=== PATIENT | female | born 1965 ===

== ENCOUNTER 2022-05-10 08:33 | Inpatient (IN) | payer SELFPAY ==
[2022-05-10] MEDS ORDERED: ACETAMINOPHEN 325 MG TAB PO PRN (09:05)
[2022-05-10] MEDS ORDERED: DEXTROSE 50% IN WATER (25GM) 50 ML SYRINGE IV PRN (09:05)
[2022-05-10] MEDS ORDERED: oxyCODONE /ACETAMINOPHEN 5-325MG TAB PO PRN (09:05)
[2022-05-10] MEDS ORDERED: hydrALAZINE 20 MG/1 ML INJ IV PRN (09:28)
[2022-05-10] MEDS ORDERED: PROMETHAZINE 12.5 MG/10 ML ORAL LIQD PO PRN (09:28)
[2022-05-10] MEDS ORDERED: POLYETHYLENE GLYCOL 3350 17 GM POWDER PO PRN (09:28)
[2022-05-10] MEDS: METOPROLOL TARTRATE 50 MG TAB PO SCH ×2 (17:24→23:35)
[2022-05-10] MEDS: FUROSEMIDE 20 MG TAB PO SCH (17:25)
[2022-05-10] MEDS: LISINOPRIL 10 MG TAB PO SCH (17:26)
[2022-05-10] MEDS: INSULIN LISPRO 100 UNIT/ML SUB-Q SCH ×3 (17:27→23:38)
[2022-05-10] MEDS: METOCLOPRAMIDE 10 MG TAB PO SCH ×2 (17:28→23:35)
[2022-05-10] MEDS: GABAPENTIN 300 MG CAP PO SCH ×2 (17:29→23:35)
[2022-05-10] MEDS: oxyCODONE 5 MG TAB PO PRN ×2 (18:42→23:35)
[2022-05-10] MEDS: APIXABAN 5 MG TAB PO SCH (23:35)
[2022-05-11] MEDS: INSULIN GLARGINE 100 UNITS/ML SUB-Q SCH ×3 (00:33→21:16)
[2022-05-11] MEDS: GABAPENTIN 300 MG CAP PO SCH ×3 (06:25→21:16)
[2022-05-11] MEDS: oxyCODONE 5 MG TAB PO PRN ×3 (09:02→22:07)
[2022-05-11] MEDS: METOCLOPRAMIDE 10 MG TAB PO SCH ×4 (09:04→21:17)
[2022-05-11] MEDS: APIXABAN 5 MG TAB PO SCH ×2 (09:05→21:17)
[2022-05-11] MEDS: LISINOPRIL 10 MG TAB PO SCH (09:05)
[2022-05-11] MEDS: FUROSEMIDE 20 MG TAB PO SCH (09:10)
[2022-05-11] MEDS: CITALOPRAM 20 MG TAB PO SCH (09:10)
[2022-05-11] MEDS: ASPIRIN EC 81 MG TAB PO SCH (09:10)
[2022-05-11] MEDS: METOPROLOL TARTRATE 50 MG TAB PO SCH ×2 (09:10→21:24)
[2022-05-11] MEDS: INSULIN LISPRO 100 UNIT/ML SUB-Q SCH ×4 (09:10→21:28)
[2022-05-11 10:38] LABS: Basophils # (Auto) 0.1 K/mm3 (0.0-0.1); Basophils % (Auto) 0.7 % (0.0-1.8); Eosinophils # (Auto) 0.1 K/mm3 (0.0-0.4); Eosinophils % (Auto) 1.2 % (0.0-4.3); Hematocrit 35.2 % (30.3-42.9); Hemoglobin 11.6 gm/dl (10.1-14.3); Lymphocytes # (Auto) 2.3 K/mm3 (1.2-5.4); Lymphocytes % (Auto) 20.8 % (13.4-35.0); Mean Corpuscular HGB Conc 33 % (30-34); Mean Corpuscular Volume 88 fl (79-97); Monocytes # (Auto) 0.7 K/mm3 (0.0-0.8); Monocytes % (Auto) 6.8 % (0.0-7.3); Platelet Count 383 K/mm3 (140-440); Red Blood Count 3.98 M/mm3 (3.65-5.03); Red Cell Distribution Width 14.8 % (13.2-15.2)
[2022-05-11 11:25] LABS: Alanine Aminotransferase 24 units/L (7-56); Albumin 3.8 g/dL (3.9-5); BUN/Creatinine Ratio 38; Blood Urea Nitrogen 30 mg/dL (7-17); Calcium 9.3 mg/dL (8.4-10.2); Hemolysis Index 8
--- NOTE | 2022-05-11 11:42 | History and Physical Report ---
History of Present Illness Date: 05/11/22 Date of admission: 05/10/22 17:06 Chief Complaint: Left BKA History of present illness: 57-year-old female who presented to outside hospital with foul-smelling left foot wound which was draining. Admitted for sepsis and IV antibiotics previously in July 2019. Upon examination the patient met criteria this admission for sepsis and was also found to be in atrial fibrillation with RVR. Imaging showed gas in the soft tissue with ulceration to the level of the bone but did not show venkatesh osseous destruction. Started on IV antibiotics, was planned to go to the OR on 04/28 for BKA however patient opted for debridement instead, vascular and podiatry both recommend BKA. On 04/30 patient ended up going for BKA, antibiotics were later stopped. Rate control was achieved using oral Cardizem and Lopressor and patient was started on Eliquis. Of note patient currently has diarrhea which just started overnight. Seems to be improving per the patient, will monitor and if continues and seems to be consistent with C. difficile will check stool sample. After the patient was medically stabilized they were transferred for further rehabilitation. All available medical records have been reviewed. Plan of care was discussed with patient. Past History Past Medical History: atrial fib, diabetes, GERD, hypertension, hyperlipidemia Past Surgical History: appendectomy, cholecystectomy, hysterectomy, tonsillectomy, Other (Back surgery, BKA) Social history: , lives with family ([id number]), smoking (Recently stopped at admission). denies: alcohol abuse, prescription drug abuse Family history: hypertension Medications and Allergies Allergies Allergy/AdvReac Type Severity Reaction Status Date / Time No Known Allergies Allergy Unverified 05/10/22 12:17 Home Medications Medication Instructions Recorded Confirmed Last Taken Type Citalopram Hydrobromide 1 tab PO QID 05/11/22 05/11/22 Unknown History [Citalopram HBr] Gabapentin [Neurontin] 600 mg PO Q8H 05/11/22 05/11/22 Unknown History Oxycodone HCl/Acetaminophen 1 each PO Q6HR PRN 05/11/22 05/11/22 Unknown History [Percocet 10/325 mg] amLODIPine [Norvasc] 10 mg PO DAILY 05/11/22 05/11/22 Unknown History buPROPion [Wellbutrin] 150 mg PO DAILY 05/11/22 05/11/22 Unknown History lisinopriL [Lisinopril] 10 mg PO HS 05/11/22 05/11/22 Unknown History tiZANidine [Zanaflex 4mg TAB] 6 mg PO QID 05/11/22 05/11/22 Unknown History traMADoL [Ultram] 50 mg PO Q4HR PRN 05/11/22 05/11/22 Unknown History Active Meds: Active Medications Acetaminophen (Acetaminophen 325 Mg Tab) 650 mg PO Q6H PRN PRN Reason: Pain MILD(1-3)/Fever >100.5/GALLARDO Apixaban (Apixaban 5 Mg Tab) 5 mg PO Q12HR [facility]; Protocol Last Admin: 05/11/22 09:05 Dose: 5 mg Aspirin (Aspirin Ec 81 Mg Tab) 81 mg PO QDAY [facility] Last Admin: 05/11/22 09:10 Dose: 81 mg Atorvastatin Calcium (Atorvastatin 40 Mg Tab) 40 mg PO QHS [facility] Last Admin: 05/10/22 23:35 Dose: 40 mg Bisacodyl (Bisacodyl 10 Mg Rect Supp) 10 mg [place] QDAY PRN PRN Reason: Constipation Bisacodyl (Bisacodyl 5 Mg Tab) 5 mg PO QDAY [facility] Last Admin: 05/11/22 09:11 Dose: Not Given Citalopram Hydrobromide (Citalopram 20 Mg Tab) 40 mg PO QDAY [facility] Last Admin: 05/11/22 09:10 Dose: 40 mg Dextrose (Dextrose 50% In Water (25gm) 50 Ml Syringe) 50 ml IV Q30MIN PRN; P rotocol PRN Reason: Hypoglycemia Furosemide (Furosemide 20 Mg Tab) 20 mg PO QDAY [facility] Last Admin: 05/11/22 09:10 Dose: 20 mg Gabapentin (Gabapentin 300 Mg Cap) 300 mg PO Q8HR [facility] Last Admin: 05/11/22 06:25 Dose: 300 mg Hydralazine HCl (Hydralazine 20 Mg/1 Ml Inj) 10 mg IV Q4HR PRN PRN Reason: Hypertension Insulin Glargine (Insulin Glargine 100 Units/Ml) 40 units SUB-Q QAMDIAB [facility] Last Admin: 05/11/22 09:02 Dose: 40 units Insulin Glargine (Insulin Glargine 100 Units/Ml) 40 units SUB-Q QHS [facility] Last Admin: 05/11/22 00:33 Dose: 40 units Insulin Human Lispro (Insulin Lispro 100 Unit/Ml) 0 unit SUB-Q [facility]; Protocol Last Admin: 05/11/22 09:10 Dose: 3 unit Lisinopril (Lisinopril 10 Mg Tab) 10 mg PO QDAY [facility] Last Admin: 05/11/22 09:05 Dose: 10 mg Loperamide HCl (Loperamide 2 Mg Cap) 2 mg PO Q2H PRN PRN Reason: Diarrhea Metoclopramide HCl (Metoclopramide 10 Mg Tab) 5 mg PO [facility] Last Admin: 05/11/22 09:04 Dose: 5 mg Metoprolol Tartrate (Metoprolol Tartrate 50 Mg Tab) 50 mg PO BID [facility] Last Admin: 05/11/22 09:10 Dose: 50 mg Oxycodone HCl (Oxycodone 5 Mg Tab) 10 mg PO Q4H PRN PRN Reason: Pain, Moderate (4-6) Last Admin: 05/11/22 09:02 Dose: 10 mg Polyethylene Glycol (Polyethylene Glycol 3350 17 Gm Powder) 17 gm PO QDAY PRN PRN Reason: Constipation Promethazine HCl (Promethazine 12.5 Mg/10 Ml Oral Liqd) 12.5 mg PO Q6H PRN PRN Reason: Nausea And Vomiting Review of Systems All systems: negative (ROS negative for 10 systems except as noted below with pertinent positives and negatives.) Constitutional: no weight loss, no fever, no chills Ears, nose, mouth and throat: no decreased hearing, no headache Cardiovascular: edema, high blood pressure, no chest pain, no palpitations, no rapid/irregular heart beat Respiratory: no cough, no shortness of breath Gastrointestinal: diarrhea, no nausea, no vomiting Genitourinary Female: stress incontinence, no hematuria Musculoskeletal: gait dysfunction, prior amputations Integumentary: wounds, darkening of skin, other (Gluteal breakdown) Neurological: weakness, numbness, tingling Psychiatric: no anxiety, no hypersomnia, no disorientation Endocrine: high blood sugars Exam - Exam Narrative exam: MUSCULOSKELETAL SPECIALTY EXAM CONSTITUTIONAL: Well developed, well nourished, appropriately groomed, obese LYMPHATIC: No appreciable abnormalities palpable in neck RESPIRATORY: Clear to auscultation bilaterally, no increased work of breathing CARDIOVASCULAR: Regular Rate/ Rhythm, no tenderness in BUE or BLE. Pulses palpable in all extremities. All extremities warm. Right lower extremity swelling and edema GI: + bowel sounds, soft, NTTP, nondistended. INTEGUMENTARY: Bruising and stasis changes on RLE, wound on LLE, otherwise normal, no lesion, rash, masses or bruising noted in extremities. MUSCULOSKELETAL: Left BKA, clean dry and intact with john and sutures, slightly warm but no overt signs of breakdown or infection. Otherwise BUE and BLE normal without defect, crepitus, subluxation, effusion, arthritic changes or TTP. BUE 4+/5, good ROM, with normal tone. 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 Coordination intact in BUE. No tremor noted in 4 extremities. POSTURE and GAIT: Sitting posture good. Balance appears reasonable. Able to transfer with assistance PSYCH: Alert, oriented x3, affect appears normal. Insight appears intact. - Constitutional Vitals: Vital Signs - 12hr 05/11/22 05/11/22 05/11/22 01:18 06:14 09:05 Temperature 98.9 F 98.5 F Pulse Rate 58 L 54 L 66 Respiratory 20 20 Rate Blood Pressure 130/49 Blood Pressure 133/57 102/36 [Right] O2 Sat by Pulse 96 94 Oximetry - Labs CBC & Chem 7: 05/11/22 10:32 05/11/22 10:32 Labs: Laboratory Results - last 72 hr 05/10/22 05/11/22 05/11/22 22:41 08:28 10:32 WBC 11.0 RBC 3.98 Hgb 11.6 Hct 35.2 MCV 88 MCH 29 MCHC 33 RDW 14.8 Plt Count 383 Lymph % (Auto) 20.8 [place] % (Auto) 6.8 Eos % (Auto) 1.2 Baso % (Auto) 0.7 Lymph # (Auto) 2.3 [place] # (Auto) 0.7 Eos # (Auto) 0.1 Baso # (Auto) 0.1 Seg Neutrophils % 70.5 H Seg Neutrophils # 7.7 Sodium Potassium Chloride Carbon Dioxide Anion Gap BUN Creatinine Estimated GFR BUN/Creatinine Ratio Glucose POC Glucose 283 H 194 H Calcium Total Bilirubin AST ALT Alkaline Phosphatase Total Protein Albumin Albumin/Globulin Ratio 05/11/22 10:32 WBC RBC Hgb Hct MCV MCH MCHC RDW Plt Count Lymph % (Auto) [place] % (Auto) Eos % (Auto) Baso % (Auto) Lymph # (Auto) [place] # (Auto) Eos # (Auto) Baso # (Auto) Seg Neutrophils % Seg Neutrophils # Sodium 139 Potassium 4.8 Chloride 100.0 Carbon Dioxide 28 Anion Gap 16 BUN 30 H Creatinine 0.8 Estimated GFR > 60 BUN/Creatinine Ratio 38 Glucose 281 H POC Glucose Calcium 9.3 Total Bilirubin 0.50 AST 21 ALT 24 Alkaline Phosphatase 92 Total Protein 6.5 Albumin 3.8 L Albumin/Globulin Ratio 1.4 Assessment and Plan Assessment and plan: Patient was assessed and evaluated for Acute Inpatient Rehab Unit. Due to the patients above-mentioned medical complexity, along with decreased functional mobility and self care, this patient continues to require and be appropriate for a comprehensive, multidisciplinary [id number] rehabilitation program. These needs cannot be met in an outpatient or other less intensive setting. The patient would continue to benefit from skilled therapy intervention for at least 3 hours per day, five days a week, with techniques specific to the needs of the patient to improve function, activities of daily living, and reintegration into the community. The patient continues to require: -- OT to improve ROM, self-care, and learn use of adaptive equipment -- PT to improve strength and balance, functional transfers, and ambulation with energy conservation techniques to improve functional mobility -- 24 hour RN to ensure and prevent skin breakdown, promote progressive independence while ensuring safety, ensure education regarding medications, and incorporation of the rehabilitation at the bedside -- 24 hour Letterpress Setter to coordinate this interdisciplinary program, and to manage/prevent complications as a result of the patients medical comorbidities. -Plan of care by day 4 -Weekly team conferences With such a program, there is a reasonable certainty that the goals individualized for this patient can be achieved within the specified length of stay. Left BKA: Continue to monitor wound for any signs of infection or dehiscence. Maintain dressing changes. Patient will need to follow-up with surgeon after discharge. Hypertension: Continue medications and adjust as needed for normotension. Goal less than 140/90. Atrial fibrillation: Continue rate control and Eliquis. Monitor for any signs of worsening cardiac function. Patient is on telemetry Gastroparesis: Scheduled Reglan, monitor Diabetes, poorly controlled: Insulin has been ordered, continue carb controlled diet. Monitor and adjust as needed for euglycemia. Diarrhea: Imodium ordered after being alerted by nursing. Will monitor for any possibility of C. difficile and test as needed Gluteal skin breakdown: Monitor frequently after bowel movements and provide CHRISTAL care, this was present on admission and appears to be chronic in nature ADL dysfunction: OT will work on improving ability to perform ADLs (including assistive devices) to increase independence and decrease caregiver burden and improve functional transfers and mobility training. Difficulty walking: PT will work on gait training and proper use of assistive devices and advance as appropriate to use of stairs and outside ambulation on u alexi surfaces. Unsteadiness on feet: PT will work on improving static and dynamic sitting and standing balance as well as proper use of assistive devices to decrease risk of falls. Abnormality of gait: PT will work to improve safety and efficiency of gait through neuromotor training and gait training along with instruction on proper use of assistive devices. Muscle weakness: PT & OT will work on strengthening exercises to improve functional strength including mixture of closed and open kinetic chain exercises. Debility: PT & OT will work on improving overall functional status to improve p articipation with ADLs, mobility and social involvement. Fatigue: PT & OT will work on improving endurance through aerobic exercises and therapeutic activity while monitoring patients tolerance for activity and vital signs as needed. DVT ppx: On Eliquis Pain: Continue physical modalities in therapy and pain medications as needed to achieve functional pain control. Sleep: Monitor and address as needed. Bowel: Monitor and address as needed. Appetite: Monitor and address as needed. Discharge planning: Pending therapy progress and care plan meeting. Will continue discussion with therapy team, SW, patient and family. Restrictions/ Precautions: Falls WB status: FWB Functional Hx: ADLs: Independent Cognition: Independent Mobility: No AD Barriers to Discharge: Decreased mobility and ability to perform self care, balance deficits, weakness Estimated Length of Stay: 57 days Discharge Destination: Home with family POST ADMISSION PHYSICIAN EVALUATION I have examined the patient and find that functional status, medical condition and appropriateness for IRF admission are essentially unchanged from those described in the preadmission screening. Will monitor for worsening wound d ehiscence, phantom pain, infection, DVT/PE, bowel and bladder complications and complications due to atrial fibrillation, diabetes, hypertension and electrolyte abnormalities. Will attempt to avoid occurrence of these issues or treat them if they present themselves. Patient discussed during team conference on day of admission. She has been evaluated by physical therapy and Occupational Therapy and is actually doing fairly well. She is without payer source. Will need to follow-up with her s urgeon and PCP at discharge. We will continue working with occupational therapy and physical therapy to improve her ability to perform transfers, ADLs and self-care as independently as possible. Plan to work with her for 5-7 days depending upon her progress. We will discuss further over the next few days with therapists
[2022-05-11] MEDS: LOPERAMIDE 2 MG CAP PO PRN ×3 (12:19→22:07)
[2022-05-12] MEDS: GABAPENTIN 300 MG CAP PO SCH ×3 (05:36→22:38)
[2022-05-12] MEDS: oxyCODONE 5 MG TAB PO PRN ×3 (05:36→19:11)
[2022-05-12] MEDS: LOPERAMIDE 2 MG CAP PO PRN ×2 (05:36→12:16)
--- NOTE | 2022-05-12 07:50 | Progress Note ---
Subjective Date of service: 05/12/22 Principal diagnosis: Left BKA Interval history: 57-year-old female who presented to outside hospital with foul-smelling left foot wound which was draining. Admitted for sepsis and IV antibiotics previously in July 2019. Upon examination the patient met criteria this admission for sepsis and was also found to be in atrial fibrillation with RVR. Imaging showed gas in the soft tissue with ulceration to the level of the bone but did not show venkatesh osseous destruction. Started on IV antibiotics, was planned to go to the OR on 04/28 for BKA however patient opted for debridement instead, vascular and podiatry both recommend BKA. On 04/30 patient ended up going for BKA, antibiotics were later stopped. Rate control was achieved using oral Cardizem and Lopressor and patient was started on Eliquis. Of note patient currently has diarrhea which just started overnight. Seems to be improving per the patient, will monitor and if continues and seems to be consistent with C. difficile will check stool sample. After the patient was medically stabilized they were transferred for further rehabilitation. All available medical records have been reviewed. Plan of care was discussed with patient. Interval History: Patient is participating in therapy and making reasonable progress. Taking rest breaks as needed. +BM. Denies pain, palpitations, dyspnea, cough, N/V, or joint pain. Left BKA: Stable, continue plan of care and monitor for any worsening, skin breakdown, infection, dehiscence Hypertension: Blood pressure well controlled currently, continue current medications Atrial fibrillation: Reviewed on telemetry, heart rate controlled without evidence of A. fib currently Diabetes: Blood glucose continues to be in the 200s, continue sliding scale and scheduled insulin Diarrhea: Continues to have bowel movements, will check a KUB, stool for C. difficile, discontinue Dulcolax (was not given due to loose stools) ADL and mobility deficits: Continue therapy to improve patient's ability to mobilize and perform ADLs as independently as possible All records, vitals, labs and medications were reviewed. No other issues per patient, nursing or therapy. Objective - Exam Narrative Exam: MUSCULOSKELETAL SPECIALTY EXAM CONSTITUTIONAL: Well developed, well nourished, appropriately groomed, obese RESPIRATORY: Clear to auscultation bilaterally, no increased work of breathing CARDIOVASCULAR: Regular Rate/ Rhythm, no tenderness in BUE or BLE. All extremities warm. Right lower extremity swelling and edema GI: + bowel sounds, soft, NTTP, nondistended. INTEGUMENTARY: Bruising and stasis changes on RLE, wound on LLE, gluteal skin breakdown, chronic, otherwise normal, no lesion, rash, masses or bruising noted in extremities. MUSCULOSKELETAL: Left BKA, clean dry and intact with john and sutures, slightly warm but no overt signs of breakdown or infection. Otherwise BUE and BLE normal without defect, crepitus, subluxation, effusion, arthritic changes or TTP. BUE 4+/5, good ROM, with normal tone. 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 Coordination intact in BUE. No tremor noted in 4 extremities. POSTURE and GAIT: Sitting posture good. Balance appears reasonable. Able to transfer with assistance PSYCH: Alert, oriented x3, affect appears normal. Insight appears intact. - Constitutional Vitals: Vital Signs - 12hr 05/11/22 05/11/22 05/12/22 20:00 21:24 01:00 Pulse Rate 70 66 Respiratory 19 Rate Blood Pressure 120/37 O2 Sat by Pulse 93 Oximetry 05/12/22 04:00 Pulse Rate 59 L Respiratory Rate Blood Pressure O2 Sat by Pulse Oximetry - Allied health notes Allied health notes reviewed: nursing, PT, OT - Labs CBC & Chem 7: 05/11/22 10:32 05/11/22 10:32 Labs: Laboratory Results - last 72 hr 05/10/22 05/11/22 05/11/22 22:41 08:28 10:32 WBC 11.0 RBC 3.98 Hgb 11.6 Hct 35.2 MCV 88 MCH 29 MCHC 33 RDW 14.8 Plt Count 383 Lymph % (Auto) 20.8 [place] % (Auto) 6.8 Eos % (Auto) 1.2 Baso % (Auto) 0.7 Lymph # (Auto) 2.3 [place] # (Auto) 0.7 Eos # (Auto) 0.1 Baso # (Auto) 0.1 Seg Neutrophils % 70.5 H Seg Neutrophils # 7.7 Sodium Potassium Chloride Carbon Dioxide Anion Gap BUN Creatinine Estimated GFR BUN/Creatinine Ratio Glucose POC Glucose 283 H 194 H Calcium Total Bilirubin AST ALT Alkaline Phosphatase Total Protein Albumin Albumin/Globulin Ratio 05/11/22 05/11/22 05/11/22 10:32 11:55 16:03 WBC RBC Hgb Hct MCV MCH MCHC RDW Plt Count Lymph % (Auto) [place] % (Auto) Eos % (Auto) Baso % (Auto) Lymph # (Auto) [place] # (Auto) Eos # (Auto) Baso # (Auto) Seg Neutrophils % Seg Neutrophils # Sodium 139 Potassium 4.8 Chloride 100.0 Carbon Dioxide 28 Anion Gap 16 BUN 30 H Creatinine 0.8 Estimated GFR > 60 BUN/Creatinine Ratio 38 Glucose 281 H POC Glucose 249 H 239 H Calcium 9.3 Total Bilirubin 0.50 AST 21 ALT 24 Alkaline Phosphatase 92 Total Protein 6.5 Albumin 3.8 L Albumin/Globulin Ratio 1.4 05/11/22 21:18 WBC RBC Hgb Hct MCV MCH MCHC RDW Plt Count Lymph % (Auto) [place] % (Auto) Eos % (Auto) Baso % (Auto) Lymph # (Auto) [place] # (Auto) Eos # (Auto) Baso # (Auto) Seg Neutrophils % Seg Neutrophils # Sodium Potassium Chloride Carbon Dioxide Anion Gap BUN Creatinine Estimated GFR BUN/Creatinine Ratio Glucose POC Glucose 290 H Calcium Total Bilirubin AST ALT Alkaline Phosphatase Total Protein Albumin Albumin/Globulin Ratio Assessment and Plan Left BKA: Continue to monitor wound for any signs of infection or dehiscence. Maintain dressing changes. Patient will need to follow-up with surgeon after discharge. Hypertension: Continue medications and adjust as needed for normotension. Goal less than 140/90. Atrial fibrillation: Continue rate control and Eliquis. Monitor for any signs of worsening cardiac function. Patient is on telemetry Gastroparesis: Scheduled Reglan, monitor Diabetes, poorly controlled: Insulin has been ordered, continue carb controlled diet. Monitor and adjust as needed for euglycemia. Diarrhea: Imodium ordered after being alerted by nursing. Check stool for C. difficile, KUB Gluteal skin breakdown: Monitor frequently after bowel movements and provide CHRISTAL care, this was present on admission and appears to be chronic in nature ADL dysfunction: OT will work on improving ability to perform ADLs (including assistive devices) to increase independence and decrease caregiver burden and improve functional transfers and mobility training. Difficulty walking: PT will work on gait training and proper use of assistive devices and advance as appropriate to use of stairs and outside ambulation on uneven surfaces. Unsteadiness on feet: PT will work on improving static and dynamic sitting and standing balance as well as proper use of assistive devices to decrease risk of falls. Abnormality of gait: PT will work to improve safety and efficiency of gait through neuromotor training and gait training along with instruction on proper use of assistive devices. Muscle weakness: PT & OT will work on strengthening exercises to improve functional strength including mixture of closed and open kinetic chain exercises. Debility: PT & OT will work on improving overall functional status to improve participation with ADLs, mobility and social involvement. Fatigue: PT & OT will work on improving endurance through aerobic exercises and therapeutic activity while monitoring patients tolerance for activity and vital signs as needed. DVT ppx: On Eliquis Pain: Continue physical modalities in therapy and pain medications as needed to achieve functional pain control. Sleep: Monitor and address as needed. Bowel: Monitor and address as needed. Appetite: Monitor and address as needed. Discharge planning: Pending therapy progress and care plan meeting. Will continue discussion with therapy team, SW, patient and family. Restrictions/ Precautions: Falls WB status: FWB Functional Hx: ADLs: Independent Cognition: Independent Mobility: walker Barriers to Discharge: Decreased mobility and ability to perform self care, balance deficits, weakness Estimated Length of Stay: 57 days Discharge Destination: Home with family
--- NOTE | 2022-05-12 09:54 | XRay Report ---
ABDOMEN 1 VIEW 05/12/2022 8:29 AM INDICATION / CLINICAL INFORMATION: Abd pain, constipation/diarrhea. COMPARISON: None available. FINDINGS: TUBES / LINES: None. BOWEL GAS PATTERN: No acute abnormality FREE AIR / EXTRALUMINAL GAS: None. ADDITIONAL FINDINGS: No significant additional findings. IMPRESSION: 1. No acute abnormality Signer Name: Ron Velazquez MD Signed: 05/12/2022 9:49 AM Workstation Name: [id number]
[2022-05-12] MEDS: INSULIN LISPRO 100 UNIT/ML SUB-Q SCH ×4 (10:00→22:38)
[2022-05-12] MEDS: FUROSEMIDE 20 MG TAB PO SCH (10:30)
[2022-05-12] MEDS: METOCLOPRAMIDE 10 MG TAB PO SCH ×4 (11:00→22:38)
[2022-05-12] MEDS: METOPROLOL TARTRATE 50 MG TAB PO SCH ×2 (12:16→22:35)
[2022-05-12] MEDS: LISINOPRIL 10 MG TAB PO SCH (12:19)
[2022-05-12] MEDS: APIXABAN 5 MG TAB PO SCH ×2 (12:20→22:37)
[2022-05-12] MEDS: CITALOPRAM 20 MG TAB PO SCH (12:20)
[2022-05-12] MEDS: ASPIRIN EC 81 MG TAB PO SCH (12:20)
[2022-05-12] MEDS: INSULIN GLARGINE 100 UNITS/ML SUB-Q SCH ×2 (13:10→22:39)
[2022-05-13] MEDS: GABAPENTIN 300 MG CAP PO SCH ×3 (06:03→21:39)
[2022-05-13] MEDS: INSULIN LISPRO 100 UNIT/ML SUB-Q SCH ×4 (08:23→21:39)
[2022-05-13] MEDS: INSULIN GLARGINE 100 UNITS/ML SUB-Q SCH ×3 (08:23→21:48)
[2022-05-13] MEDS: METOCLOPRAMIDE 10 MG TAB PO SCH ×4 (08:24→21:39)
[2022-05-13] MEDS: CITALOPRAM 20 MG TAB PO SCH (09:57)
[2022-05-13] MEDS: FUROSEMIDE 20 MG TAB PO SCH (09:58)
[2022-05-13] MEDS: METOPROLOL TARTRATE 50 MG TAB PO SCH ×2 (09:58→21:39)
[2022-05-13] MEDS: ASPIRIN EC 81 MG TAB PO SCH (09:58)
[2022-05-13] MEDS: APIXABAN 5 MG TAB PO SCH ×2 (09:58→21:38)
[2022-05-13] MEDS ORDERED: SODIUM CHLORIDE 0.9% 1000 ML 1,000 ML IV SCH (10:00)
[2022-05-13] MEDS: LISINOPRIL 10 MG TAB PO SCH (10:01)
[2022-05-13] MEDS: oxyCODONE 5 MG TAB PO PRN ×2 (10:07→21:38)
--- NOTE | 2022-05-13 13:13 | Progress Note ---
Subjective Date of service: 05/13/22 Principal diagnosis: Left BKA Interval history: 57-year-old female who presented to outside hospital with foul-smelling left foot wound which was draining. Admitted for sepsis and IV antibiotics previously in July 2019. Upon examination the patient met criteria this admission for sepsis and was also found to be in atrial fibrillation with RVR. Imaging showed gas in the soft tissue with ulceration to the level of the bone but did not show venkatesh osseous destruction. Started on IV antibiotics, was planned to go to the OR on 04/28 for BKA however patient opted for debridement instead, vascular and podiatry both recommend BKA. On 04/30 patient ended up going for BKA, antibiotics were later stopped. Rate control was achieved using oral Cardizem and Lopressor and patient was started on Eliquis. Of note patient currently has diarrhea which just started overnight. Seems to be improving per the patient, will monitor and if continues and seems to be consistent with C. difficile will check stool sample. After the patient was medically stabilized they were transferred for further rehabilitation. All available medical records have been reviewed. Plan of care was discussed with patient. Interval History: Patient is participating in therapy and making reasonable progress. Taking rest breaks as needed. +BM. Denies pain, palpitations, dyspnea, cough, N/V, or joint pain. Left BKA: Stable, continue plan of care and monitor for any worsening, skin breakdown, infection, dehiscence Hypertension: Diastolic has been running slightly lower than what we would prefer. However patient is asymptomatic and diastolic is in line with values seen in outside hospital but it was more variable there. Question fit of blood pressure cuff vs volume depletion. We will give 1 L gentle fluids, d/c lisinopril, place hold orders for Lasix, continue to monitor and continue metoprolol Atrial fibrillation: Reviewed on telemetry, heart rate controlled without evidence of A. fib currently. Cont metoprolol Diabetes: Blood glucose elevated to 300s, continue sliding scale and increase scheduled insulin Diarrhea: Continues to have bowel movements, will check a KUB, stool for C. difficile, discontinue Dulcolax (was not given due to loose stools) ADL and mobility deficits: Continue therapy to improve patient's ability to mobilize and perform ADLs as independently as possible All records, vitals, labs and medications were reviewed. No other issues per patient, nursing or therapy. Objective - Exam Narrative Exam: MUSCULOSKELETAL SPECIALTY EXAM CONSTITUTIONAL: Well developed, well nourished, appropriately groomed, obese RESPIRATORY: Clear to auscultation bilaterally, no increased work of breathing CARDIOVASCULAR: Regular Rate/ Rhythm, no tenderness in BUE or BLE. All extremities warm. Right lower extremity swelling and edema GI: + bowel sounds, soft, NTTP, nondistended. INTEGUMENTARY: Bruising and stasis changes on RLE, wound on LLE, gluteal skin breakdown, chronic, otherwise normal, no lesion, rash, masses or bruising noted in extremities. MUSCULOSKELETAL: Left BKA, clean dry and intact with john and sutures, slightly warm but no overt signs of breakdown or infection. Otherwise BUE and BLE normal without defect, crepitus, subluxation, effusion, arthritic changes or TTP. BUE 4+/5, good ROM, with normal tone. 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 Coordination intact in BUE. No tremor noted in 4 extremities. POSTURE and GAIT: Sitting posture good. Balance appears reasonable. Able to transfer with CGA PSYCH: Alert, oriented x3, affect appears normal. Insight appears intact. - Constitutional Vitals: Vital Signs - 12hr 05/13/22 05/13/22 05/13/22 08:23 09:32 09:58 Temperature 98.2 F Pulse Rate 66 72 Respiratory Rate Blood Pressure 123/40 123/42 O2 Sat by Pulse 95 Oximetry 05/13/22 10:07 Temperature Pulse Rate Respiratory 20 Rate Blood Pressure O2 Sat by Pulse Oximetry - Allied health notes Allied health notes reviewed: nursing, PT, OT - Labs CBC & Chem 7: 05/11/22 10:32 05/11/22 10:32 Labs: Laboratory Results - last 72 hr 05/10/22 05/11/22 05/11/22 22:41 08:28 10:32 WBC 11.0 RBC 3.98 Hgb 11.6 Hct 35.2 MCV 88 MCH 29 MCHC 33 RDW 14.8 Plt Count 383 Lymph % (Auto) 20.8 Osborne % (Auto) 6.8 Eos % (Auto) 1.2 Baso % (Auto) 0.7 Lymph # (Auto) 2.3 Osborne # (Auto) 0.7 Eos # (Auto) 0.1 Baso # (Auto) 0.1 Seg Neutrophils % 70.5 H Seg Neutrophils # 7.7 Sodium Potassium Chloride Carbon Dioxide Anion Gap BUN Creatinine Estimated GFR BUN/Creatinine Ratio Glucose POC Glucose 283 H 194 H Calcium Total Bilirubin AST ALT Alkaline Phosphatase Total Protein Albumin Albumin/Globulin Ratio 05/11/22 05/11/22 05/11/22 10:32 11:55 16:03 WBC RBC Hgb Hct MCV MCH MCHC RDW Plt Count Lymph % (Auto) Osborne % (Auto) Eos % (Auto) Baso % (Auto) Lymph # (Auto) Osborne # (Auto) Eos # (Auto) Baso # (Auto) Seg Neutrophils % Seg Neutrophils # Sodium 139 Potassium 4.8 Chloride 100.0 Carbon Dioxide 28 Anion Gap 16 BUN 30 H Creatinine 0.8 Estimated GFR > 60 BUN/Creatinine Ratio 38 Glucose 281 H POC Glucose 249 H 239 H Calcium 9.3 Total Bilirubin 0.50 AST 21 ALT 24 Alkaline Phosphatase 92 Total Protein 6.5 Albumin 3.8 L Albumin/Globulin Ratio 1.4 05/11/22 05/12/22 05/12/22 21:18 08:17 11:56 WBC RBC Hgb Hct MCV MCH MCHC RDW Plt Count Lymph % (Auto) Osborne % (Auto) Eos % (Auto) Baso % (Auto) Lymph # (Auto) Osborne # (Auto) Eos # (Auto) Baso # (Auto) Seg Neutrophils % Seg Neutrophils # Sodium Potassium Chloride Carbon Dioxide Anion Gap BUN Creatinine Estimated GFR BUN/Creatinine Ratio Glucose POC Glucose 290 H 232 H 311 H Calcium Total Bilirubin AST ALT Alkaline Phosphatase Total Protein Albumin Albumin/Globulin Ratio 05/12/22 05/12/22 05/12/22 16:00 20:44 22:00 WBC RBC Hgb Hct MCV MCH MCHC RDW Plt Count Lymph % (Auto) Osborne % (Auto) Eos % (Auto) Baso % (Auto) Lymph # (Auto) Osborne # (Auto) Eos # (Auto) Baso # (Auto) Seg Neutrophils % Seg Neutrophils # Sodium Potassium Chloride Carbon Dioxide Anion Gap BUN Creatinine Estimated GFR BUN/Creatinine Ratio Glucose POC Glucose 290 H 342 H 303 H Calcium Total Bilirubin AST ALT Alkaline Phosphatase Total Protein Albumin Albumin/Globulin Ratio 05/13/22 08:20 WBC RBC Hgb Hct MCV MCH MCHC RDW Plt Count Lymph % (Auto) Osborne % (Auto) Eos % (Auto) Baso % (Auto) Lymph # (Auto) Osborne # (Auto) Eos # (Auto) Baso # (Auto) Seg Neutrophils % Seg Neutrophils # Sodium Potassium Chloride Carbon Dioxide Anion Gap BUN Creatinine Estimated GFR BUN/Creatinine Ratio Glucose POC Glucose 240 H Calcium Total Bilirubin AST ALT Alkaline Phosphatase Total Protein Albumin Albumin/Globulin Ratio - Imaging and cardiology Abdominal x-ray: report reviewed, image reviewed Assessment and Plan Left BKA: Continue to monitor wound for any signs of infection or dehiscence. Maintain dressing changes. Patient will need to follow-up with surgeon after discharge. Hypertension: Discontinue lisinopril 10 mg, hold orders placed for Lasix and monitor blood pressure, adjust as needed for normotension. Goal less than 140/90. Diastolic has been low however was similar at outside hospital but outside hospital had more variability. 1 L of gentle fluids and monitor Atrial fibrillation: Continue rate control and Eliquis. Monitor for any signs of worsening cardiac function. Patient is on telemetry Gastroparesis: Scheduled Reglan, monitor Diabetes, poorly controlled: Insulin has been ordered, continue carb controlled diet. Monitor and adjust as needed for euglycemia. Increased Lantus Diarrhea: Imodium ordered after being alerted by nursing. Check stool for C. difficile, pending. KUB was reviewed and did not show any significant abnormality Gluteal skin breakdown: Monitor frequently after bowel movements and provide CHRISTAL care, this was present on admission and appears to be chronic in nature ADL dysfunction: OT will work on improving ability to perform ADLs (including assistive devices) to increase independence and decrease caregiver burden and improve functional transfers and mobility training. Difficulty walking: PT will work on gait training and proper use of assistive devices and advance as appropriate to use of stairs and outside ambulation on uneven surfaces. Unsteadiness on feet: PT will work on improving static and dynamic sitting and standing balance as well as proper use of assistive devices to decrease risk of falls. Abnormality of gait: PT will work to improve safety and efficiency of gait through neuromotor training and gait training along with instruction on proper use of assistive devices. Muscle weakness: PT & OT will work on strengthening exercises to improve functional strength including mixture of closed and open kinetic chain exercises. Debility: PT & OT will work on improving overall functional status to improve participation with ADLs, mobility and social involvement. Fatigue: PT & OT will work on improving endurance through aerobic exercises and therapeutic activity while monitoring patients tolerance for activity and vital signs as needed. DVT ppx: On Eliquis Pain: Continue physical modalities in therapy and pain medications as needed to achieve functional pain control. Sleep: Monitor and address as needed. Bowel: Monitor and address as needed. Appetite: Monitor and address as needed. Discharge planning: Pending therapy progress and care plan meeting. Will continue discussion with therapy team, SW, patient and family. Restrictions/ Precautions: Falls WB status: FWB Functional Hx: ADLs: Independent Cognition: Independent Mobility: walker Barriers to Discharge: Decreased mobility and ability to perform self care, balance deficits, weakness Estimated Length of Stay: 57 days Discharge Destination: Home with family
--- NOTE | 2022-05-13 16:22 | IRU Plan of Care ---
Interdisciplinary Plan of Care - IPOC IRU INTERDISCIPLINARY PLAN: [facility] Inpatient Rehab Unit Plan of Care IRU Interdisciplinary Care Plan Start: 05/11/22 16:14 Freq: Status: Active Protocol: Document 05/13/22 16:01 TH (Rec: 05/13/22 16:09 TH [id number]) IRU Interdisciplinary Care Plan Therapy Services Therapy Services Will Include: Physical Therapy,Occupational Query Text:Patient will be seen for a Therapy minimum of 3 hours of daily therapy 5 out of 7 days a week. Therapy intensity may be adjusted within a 7 consecutive day period to effectively serve the individual needs of the patient. Treatment Frequency/Intensity/Duration Treatment Frequency 5x/week Treatment Intensity 3 hours/day Treatment Duration 7-10 days Problem Area: Eating/Swallowing Eating/Swallowing Outcomes Eating/Swallowing Interventions Problem Area: Bathing/Grooming Bathing/Grooming Outcomes Improve [place] w/ Grooming,Improve [place] w/ Bathing Bathing/Grooming Interventions ADL Training,Use of Assistive Devices,Therapeutic Exercise, Therapeutic Activity, Neuromuscular Re-Education, Balance Work,Activity Tolerance Work,Patient/ Caregiver Education Problem Area: Dressing Dressing Outcomes Improve [place] w/ UB Dressing,Improve [place] w/ LB Dressing Dressing Outcomes Improve [place] w/ UB Dressing,Improve [place] w/ LB Dressing Problem Area: Mobility Mobility Outcomes Improve [place] w/ Bed Mobility,Improve [place] w/ Ambulation,Improve [place] w/ Stairs/Curb, Improve [place] w/ Wheelchair Mobility Interventions Therapeutic Exercise, Neuromuscular Re-Ed.,Activity Tolerance Work,Use of Assistive Devices,Patient/ Caregiver Education,Bed Mobility Work,Gait Training,W/ C Mobility Work Problem Area: Transfers Transfers Outcomes Improve [place] w/ Bed Transfers,Improve [place] w/ Car Transfers Transfers Interventions Transfer Training,Therapeutic Exercise,Neuromuscular Re- Education,Use of Assistive Devices,Patient/Caregiver Education Problem Area: Bowel/Bladder Managment Bowel/Bladder Outcomes Continent of Bladder,Continent of Bowel,Remain free of UTI Bowel/Bladder Interventions Use of Assistive Devices, Patient/Caregiver Education Problem Area: Toileting Toileting Outcomes Improve [place] w/ Toileting Toileting Interventions ADL Training,Balance Work,Use of Assistive Devices,Patient/ Caregiver Education Problem Area: Nutrition Nutrition Outcomes Nutrition Interventions Problem Area: Comprehension Comprehension Outcomes Comprehension Interventions Problem Area: Expression Expression Outcomes Expression Interventions Problem Area: Problem Solving Problem Solving Outcomes Problem Solving Interventions Problem Area: Memory Memory Outcomes Memory Interventions Problem Area: Pain Management Pain Management Outcomes Demonstrate/Verbalize Pain Strategies Pain Management Interventions Medication Management,Stress Management,Use of Devices/ Modalities (TENS, hot pack, cold pack, etc.),Positioning/ Turning,Patient/Caregiver Education Problem Area: Knowledge Deficits Knowledge Deficits Outcomes Demonstrate Ability to Manage Blood Glucose,Verbalize Precautions Knowledge Deficits Interventions Disease/Injury/Sx. Intervention Education, Medication Use Education,Body Mechanics/Joint Protection Education,Disease Management Education,Health Maintainence Education,Safety Education, Energy Conservation Education Problem Area: Skin/Tissue Integrity Skin/Tissue Integrity Outcomes Demonstrate Understanding of Pressure Relief Skin/Tissue Integrity Interventions Skin/Wound Care,Pressure Relief Instruction,Dressing Change Education,Positioning/ Turning Problem Area: Social Interaction Social Interaction Outcomes Social Interaction Interventions Problem Area: Adjustment to Disability Adjustment to Disability Outcomes Exhibit/Verbalize Decreased Depression,Exhibit/Verbalize Decreased Anxiety,Demonstrated Improved Motivation/ Participation Adjustment to Disability Interventions 1:1 Counseling,Resource Education Problem Area: Discharge Concerns Discharge Concerns Outcomes Discharge w/ Necessary Equipment,Have Home Health/ Outpatient Services Discharge Concerns Interventions Discharge Planning,Equipment Assessment, Acquisition and Placement,Family/Caregiver Conference,Family/Caregiver Training Problem Area: Community Reintegration Community Reintegration Outcomes Community Reintegration Interventions Problem Area: Home Management Home Management Outcomes Home Management Interventions Problem Area: Safety Safety Outcomes Provide Safe Environment, Perform Selfcare Safely, Demonstrate Good Safety w/ Transfers/Mobility Safety Interventions Identify Fall Risk,[place] Pt. to Environment,Reduce Environmental Hazards Problem Area: Medication Education Medication Education Outcomes Patient/Caregiver will Verbalize Understanding of Medications Medication Education Interventions Explain Administration/Side Effects/Interactions Problem Area: Diabetes Education Diabetes Education Outcomes Demonstrate Knowledge of Resources Availlable in Diabetic Ed. Folder Diabetes Education Interventions Give Pt. Diabetes Education Folder,Discuss Pathophysiology of Diabetes Problem Area: Oxygenation Oxygenation Outcomes Oxygenation Interventions Problem Area: Cardiovascular Cardiovascular Outcomes Maintain or Improve Cardiovascular Status Cardiovascular Interventions Assess Vital Signs at least Every 4 hours,Cardiac Monitoring, EKG and ABG as Ordered. Physician Only Medical Prognosis and Rehabilitation Good prognosis, good rehab potential. Lack of insurance is a barrier Potential (Completed by Physician) Interdisciplinary Problem List Interdisciplinary Problem List Interdisciplinary Problem List Impaired Bathing/Grooming, Query Text:Answers will Trigger Problems Impaired Dressing,Impaired and Outcomes on Worklist. Mobility,Impaired Transfers, Impaired Bladder/Bowel Management,Impaired Toileting, Pain Management,Knowledge Deficits,Adjustment to Disability,Discharge Concerns, Impaired Safety,Medications Education,Diabetes Education, Impaired Cardiovascular System This plan of care has been developed based on the findings from the pre- admission assessment, post admission physician evaluation, information gathered from the assessments from all therapy disciplines and other pertinent clinicia ns. The plan of care has been reviewed and discussed in collaboration with the interdisciplinary team. The plan of care will be reviewed and updated at least weekly.
[2022-05-14] MEDS: GABAPENTIN 300 MG CAP PO SCH ×3 (06:32→21:27)
[2022-05-14 07:59] LABS: BUN/Creatinine Ratio 24; Blood Urea Nitrogen 19 mg/dL (7-17); Calcium 8.4 mg/dL (8.4-10.2); Hemolysis Index 0
[2022-05-14 08:22] LABS: Hemoglobin 11.4 gm/dl (10.1-14.3); Mean Corpuscular HGB Conc 34 % (30-34); Mean Corpuscular Volume 86 fl (79-97); Platelet Count 301 K/mm3 (140-440); Red Blood Count 3.82 M/mm3 (3.65-5.03); Red Cell Distribution Width 14.8 % (13.2-15.2)
[2022-05-14] MEDS: INSULIN LISPRO 100 UNIT/ML SUB-Q SCH ×4 (09:16→21:27)
[2022-05-14] MEDS: INSULIN GLARGINE 100 UNITS/ML SUB-Q SCH ×2 (09:16→21:25)
[2022-05-14] MEDS: METOCLOPRAMIDE 10 MG TAB PO SCH ×4 (09:17→21:25)
[2022-05-14] MEDS: ASPIRIN EC 81 MG TAB PO SCH (09:58)
[2022-05-14] MEDS: METOPROLOL TARTRATE 50 MG TAB PO SCH ×2 (09:58→21:25)
[2022-05-14] MEDS: FUROSEMIDE 20 MG TAB PO SCH (09:58)
[2022-05-14] MEDS: oxyCODONE 5 MG TAB PO PRN ×4 (09:59→21:24)
[2022-05-14] MEDS: CITALOPRAM 20 MG TAB PO SCH (09:59)
[2022-05-14] MEDS: APIXABAN 5 MG TAB PO SCH ×2 (10:00→21:25)
--- NOTE | 2022-05-14 10:50 | Progress Note ---
Subjective Date of service: 05/14/22 Principal diagnosis: Left BKA Interval history: 57-year-old female who presented to outside hospital with foul-smelling left foot wound which was draining. Admitted for sepsis and IV antibiotics previously in July 2019. Upon examination the patient met criteria this admission for sepsis and was also found to be in atrial fibrillation with RVR. Imaging showed gas in the soft tissue with ulceration to the level of the bone but did not show venkatesh osseous destruction. Started on IV antibiotics, was planned to go to the OR on 04/28 for BKA however patient opted for debridement instead, vascular and podiatry both recommend BKA. On 04/30 patient ended up going for BKA, antibiotics were later stopped. Rate control was achieved using oral Cardizem and Lopressor and patient was started on Eliquis. Of note patient currently has diarrhea which just started overnight. Seems to be improving per the patient, will monitor and if continues and seems to be consistent with C. difficile will check stool sample. After the patient was medically stabilized they were transferred for further rehabilitation. All available medical records have been reviewed. Plan of care was discussed with patient. Interval History: Patient is participating in therapy and making reasonable progress. Taking rest breaks as needed. +BM, diarrhea has slowed down. Denies pain, palpitations, dyspnea, cough, N/V, or joint pain. Left BKA: Stable, continue plan of care and monitor for any worsening, skin breakdown, infection, dehiscence Hypertension: Diastolic has been running slightly lower than what we would prefer. However patient is asymptomatic and diastolic is in line with values seen in outside hospital but it was more variable there. Blood pressure was low again this morning based on recorded values. On my check during her therapy session she was 148/62 and asymptomatic. Lasix was given this morning despite diastolic blood pressure meeting the threshold for holding, have discontinued Lasix and will continue to monitor for the need to restart Lasix or lisinopril. Tolerated gentle fluids, BUNs/creatinine improved but diastolic blood pressure remains on the low side Atrial fibrillation: Reviewed on telemetry, heart rate controlled without evid ence of A. fib currently. Cont metoprolol Diabetes: Blood glucose improved with increase of Lantus, continue sliding scale and Diarrhea: Continues to have bowel movements but diarrhea has stopped currently. Continue to monitor, patient does have Imodium available as needed ADL and mobility deficits: Continue therapy to improve patient's ability to mobilize and perform ADLs as independently as possible, continues to make improvements All records, vitals, labs and medications were reviewed. No other issues per patient, nursing or therapy. Objective - Exam Narrative Exam: MUSCULOSKELETAL SPECIALTY EXAM CONSTITUTIONAL: Well developed, well nourished, appropriately groomed, obese RESPIRATORY: Clear to auscultation bilaterally, no increased work of breathing, no crackles or signs of fluid overload CARDIOVASCULAR: Regular Rate/ Rhythm, no tenderness in BUE or BLE. All extremities warm. Right lower extremity swelling and edema GI: + bowel sounds, soft, NTTP, nondistended. INTEGUMENTARY: Bruising and stasis changes on RLE, wound on LLE, gluteal skin breakdown, chronic, otherwise normal, no lesion, rash, masses or bruising noted in extremities. MUSCULOSKELETAL: Left BKA, clean dry and intact with john and sutures, slightly warm but no overt signs of breakdown or infection. Otherwise BUE and BLE normal without defect, crepitus, subluxation, effusion, arthritic changes or TTP. BUE 4+/5, good ROM, with normal tone. 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 Coordination intact in BUE. No tremor noted in 4 extremities. POSTURE and GAIT: Sitting posture good. Balance appears reasonable. Able to transfer with CGA PSYCH: Alert, oriented x3, affect appears normal. Insight appears intact. - Constitutional Vitals: Vital Signs - 12hr 05/14/22 05/14/22 05/14/22 01:02 07:25 09:59 Temperature 98.7 F Pulse Rate 67 Respiratory 20 Rate Blood Pressure 117/37 O2 Sat by Pulse 97 92 Oximetry - Allied health notes Allied health notes reviewed: nursing, PT, OT - Labs CBC & Chem 7: 05/14/22 06:29 05/14/22 06:29 Labs: Laboratory Results - last 72 hr 05/11/22 05/11/22 05/11/22 10:32 11:55 16:03 WBC RBC Hgb Hct MCV MCH MCHC RDW Plt Count Sodium 139 Potassium 4.8 Chloride 100.0 Carbon Dioxide 28 Anion Gap 16 BUN 30 H Creatinine 0.8 Estimated GFR > 60 BUN/Creatinine Ratio 38 Glucose 281 H POC Glucose 249 H 239 H Calcium 9.3 Total Bilirubin 0.50 AST 21 ALT 24 Alkaline Phosphatase 92 Total Protein 6.5 Albumin 3.8 L Albumin/Globulin Ratio 1.4 05/11/22 05/12/22 05/12/22 21:18 08:17 11:56 WBC RBC Hgb Hct MCV MCH MCHC RDW Plt Count Sodium Potassium Chloride Carbon Dioxide Anion Gap BUN Creatinine Estimated GFR BUN/Creatinine Ratio Glucose POC Glucose 290 H 232 H 311 H Calcium Total Bilirubin AST ALT Alkaline Phosphatase Total Protein Albumin Albumin/Globulin Ratio 05/12/22 05/12/22 05/12/22 16:00 20:44 22:00 WBC RBC Hgb Hct MCV MCH MCHC RDW Plt Count Sodium Potassium Chloride Carbon Dioxide Anion Gap BUN Creatinine Estimated GFR BUN/Creatinine Ratio Glucose POC Glucose 290 H 342 H 303 H Calcium Total Bilirubin AST ALT Alkaline Phosphatase Total Protein Albumin Albumin/Globulin Ratio 05/13/22 05/13/22 05/13/22 08:20 11:12 15:28 WBC RBC Hgb Hct MCV MCH MCHC RDW Plt Count Sodium Potassium Chloride Carbon Dioxide Anion Gap BUN Creatinine Estimated GFR BUN/Creatinine Ratio Glucose POC Glucose 240 H 223 H 288 H Calcium Total Bilirubin AST ALT Alkaline Phosphatase Total Protein Albumin Albumin/Globulin Ratio 05/13/22 05/14/22 05/14/22 21:11 06:29 06:29 WBC 9.0 RBC 3.82 Hgb 11.4 Hct 33.0 MCV 86 MCH 30 MCHC 34 RDW 14.8 Plt Count 301 Sodium 141 Potassium 4.3 Chloride 102.1 Carbon Dioxide 27 Anion Gap 16 BUN 19 H Creatinine 0.8 Estimated GFR > 60 BUN/Creatinine Ratio 24 Glucose 151 H POC Glucose 303 H Calcium 8.4 Total Bilirubin AST ALT Alkaline Phosphatase Total Protein Albumin Albumin/Globulin Ratio 05/14/22 07:24 WBC RBC Hgb Hct MCV MCH MCHC RDW Plt Count Sodium Potassium Chloride Carbon Dioxide Anion Gap BUN Creatinine Estimated GFR BUN/Creatinine Ratio Glucose POC Glucose 167 H Calcium Total Bilirubin AST ALT Alkaline Phosphatase Total Protein Albumin Albumin/Globulin Ratio Assessment and Plan Left BKA: Continue to monitor wound for any signs of infection or dehiscence. Maintain dressing changes. Patient will need to follow-up with surgeon after discharge. Hypertension: Discontinue lisinopril 10 mg, hold orders placed for Lasix and monitor blood pressure, adjust as needed for normotension. Goal less than 140/90. Diastolic has been low however was similar at outside hospital but outside hospital had more variability. 1 L of gentle fluids and monitor. Lasix discontinued as it was given even though parameters for holding were met. Recheck of blood pressure today by me personally showed 148/62. Atrial fibrillation: Continue rate control and Eliquis. Monitor for any signs of worsening cardiac function. Patient is on telemetry Gastroparesis: Scheduled Reglan, monitor Diabetes, poorly controlled: Insulin has been ordered, continue carb controlled diet. Monitor and adjust as needed for euglycemia. Increased Lantus, with Diarrhea: Imodium as needed. Check stool for C. difficile, pending. KUB was reviewed and did not show any significant abnormality Gluteal skin breakdown: Monitor frequently after bowel movements and provide CHRISTAL care, this was present on admission and appears to be chronic in nature ADL dysfunction: OT will work on improving ability to perform ADLs (including as sistive devices) to increase independence and decrease caregiver burden and improve functional transfers and mobility training. Difficulty walking: PT will work on gait training and proper use of assistive devices and advance as appropriate to use of stairs and outside ambulation on uneven surfaces. Unsteadiness on feet: PT will work on improving static and dynamic sitting and standing balance as well as proper use of assistive devices to decrease risk of falls. Abnormality of gait: PT will work to improve safety and efficiency of gait through neuromotor training and gait training along with instruction on proper use of assistive devices. Muscle weakness: PT & OT will work on strengthening exercises to improve functional strength including mixture of closed and open kinetic chain exerc ises. Debility: PT & OT will work on improving overall functional status to improve participation with ADLs, mobility and social involvement. Fatigue: PT & OT will work on improving endurance through aerobic exercises and therapeutic activity while monitoring patients tolerance for activity and vital signs as needed. DVT ppx: On Eliquis Pain: Continue physical modalities in therapy and pain medications as needed to achieve functional pain control. Sleep: Monitor and address as needed. Bowel: Monitor and address as needed. Appetite: Monitor and address as needed. Discharge planning: Pending therapy progress and care plan meeting. Will continue discussion with therapy team, SW, patient and family. Restrictions/ Precautions: Falls WB status: FWB Functional Hx: ADLs: Independent Cognition: Independent Mobility: walker Barriers to Discharge: Decreased mobility and ability to perform self care, balance deficits, weakness Estimated Length of Stay: 57 days Discharge Destination: Home with family
[2022-05-15] MEDS: GABAPENTIN 300 MG CAP PO SCH ×3 (06:17→21:43)
[2022-05-15] MEDS: INSULIN GLARGINE 100 UNITS/ML SUB-Q SCH ×2 (08:42→21:47)
[2022-05-15] MEDS: INSULIN LISPRO 100 UNIT/ML SUB-Q SCH ×4 (08:44→21:49)
[2022-05-15] MEDS: METOCLOPRAMIDE 10 MG TAB PO SCH (08:45)
[2022-05-15] MEDS: CITALOPRAM 20 MG TAB PO SCH (10:22)
[2022-05-15] MEDS: APIXABAN 5 MG TAB PO SCH ×2 (10:22→21:43)
[2022-05-15] MEDS: METOPROLOL TARTRATE 50 MG TAB PO SCH ×2 (10:23→21:43)
[2022-05-15] MEDS: ASPIRIN EC 81 MG TAB PO SCH (10:24)
[2022-05-15] MEDS ORDERED: METOCLOPRAMIDE 10 MG TAB PO PRN (11:00)
[2022-05-15] MEDS: oxyCODONE 5 MG TAB PO PRN ×2 (14:55→21:44)
[2022-05-16] MEDS: GABAPENTIN 300 MG CAP PO SCH ×3 (05:26→21:27)
[2022-05-16] MEDS: ASPIRIN EC 81 MG TAB PO SCH (09:31)
[2022-05-16] MEDS: CITALOPRAM 20 MG TAB PO SCH (09:31)
[2022-05-16] MEDS: INSULIN LISPRO 100 UNIT/ML SUB-Q SCH ×4 (09:31→22:12)
[2022-05-16] MEDS: INSULIN GLARGINE 100 UNITS/ML SUB-Q SCH ×2 (09:31→21:26)
[2022-05-16] MEDS: METOPROLOL TARTRATE 50 MG TAB PO SCH ×2 (09:32→21:40)
[2022-05-16] MEDS: APIXABAN 5 MG TAB PO SCH ×2 (09:32→21:27)
[2022-05-16] MEDS: oxyCODONE 5 MG TAB PO PRN (21:27)
[2022-05-17] MEDS: oxyCODONE 5 MG TAB PO PRN ×4 (05:30→21:41)
[2022-05-17] MEDS: GABAPENTIN 300 MG CAP PO SCH ×3 (05:31→21:35)
[2022-05-17 08:41] LABS: Hematocrit 34.7 % (30.3-42.9); Hemoglobin 11.2 gm/dl (10.1-14.3); Mean Corpuscular HGB Conc 32 % (30-34); Mean Corpuscular Volume 88 fl (79-97); Platelet Count 259 K/mm3 (140-440); Red Blood Count 3.94 M/mm3 (3.65-5.03); Red Cell Distribution Width 14.8 % (13.2-15.2)
[2022-05-17 08:57] LABS: Blood Urea Nitrogen 20 mg/dL (7-17); Calcium 8.6 mg/dL (8.4-10.2); Hemolysis Index 7
[2022-05-17 09:13] LABS: BUN/Creatinine Ratio 33
[2022-05-17] MEDS: INSULIN GLARGINE 100 UNITS/ML SUB-Q SCH ×2 (10:13→21:35)
[2022-05-17] MEDS: CITALOPRAM 20 MG TAB PO SCH (10:15)
[2022-05-17] MEDS: APIXABAN 5 MG TAB PO SCH ×2 (10:16→21:35)
[2022-05-17] MEDS: METOPROLOL TARTRATE 50 MG TAB PO SCH ×2 (10:17→21:34)
[2022-05-17] MEDS: ASPIRIN EC 81 MG TAB PO SCH (10:18)
[2022-05-17] MEDS: INSULIN LISPRO 100 UNIT/ML SUB-Q SCH ×4 (14:12→21:48)
--- NOTE | 2022-05-17 16:39 | Progress Note ---
Subjective Date of service: 05/17/22 Principal diagnosis: Left BKA Interval history: 57-year-old female who presented to outside hospital with foul-smelling left foot wound which was draining. Admitted for sepsis and IV antibiotics previously in July 2019. Upon examination the patient met criteria this admission for sepsis and was also found to be in atrial fibrillation with RVR. Imaging showed gas in the soft tissue with ulceration to the level of the bone but did not show venkatesh osseous destruction. Started on IV antibiotics, was planned to go to the OR on 04/28 for BKA however patient opted for debridement instead, vascular and podiatry both recommend BKA. On 04/30 patient ended up going for BKA, antibiotics were later stopped. Rate control was achieved using oral Cardizem and Lopressor and patient was started on Eliquis. Of note patient currently has diarrhea which just started overnight. Seems to be improving per the patient, will monitor and if continues and seems to be consistent with C. difficile will check stool sample. After the patient was medically stabilized they were transferred for further rehabilitation. All available medical records have been reviewed. Plan of care was discussed with patient. Interval History: Patient is participating in therapy and making reasonable progress. Taking rest breaks as needed. -BM. Denies pain, palpitations, dyspnea, cough, N/V, or joint pain. Left BKA: Stable, continue plan of care and monitor for any worsening, skin breakdown, infection, dehiscence Hypertension: Diastolic has been running slightly lower than what we would prefer. However patient is asymptomatic and diastolic is in line with values seen in outside hospital but it was more variable there. Medications have been adjusted, blood pressure remains slightly low on the diastolic side however the patient does remain asymptomatic. Recheck after seeing her today showed wide variation between 96/30 - 112/50, body habitus may be playing a role Atrial fibrillation: Reviewed on telemetry, heart rate controlled without evidence of A. fib currently. Cont metoprolol Diabetes: Blood glucose improved with increase of Lantus but still variable, continue sliding scale and monitor Diarrhea: Seems improved after stopping scheduled Reglan. Discussed with patient. Having slower stools now and thinks that she may be constipated, reminded her that she does have bowel meds available as needed. Continue to monitor, patient does have Imodium available as needed ADL and mobility deficits: Continue therapy to improve patient's ability to mobi lize and perform ADLs as independently as possible, continues to make improvements, look to discharge on Tuesday. All records, vitals, labs and medications were reviewed. No other issues per patient, nursing or therapy. Objective - Exam Narrative Exam: MUSCULOSKELETAL SPECIALTY EXAM CONSTITUTIONAL: Well developed, well nourished, appropriately groomed, obese RESPIRATORY: Clear to auscultation bilaterally, no increased work of breathing, no crackles or signs of fluid overload CARDIOVASCULAR: Regular Rate/ Rhythm, no tenderness in BUE or BLE. All extremities warm. Right lower extremity swelling and edema GI: + bowel sounds, soft, NTTP, nondistended. INTEGUMENTARY: Bruising and stasis changes on RLE, wound on LLE, gluteal skin breakdown, chronic, otherwise normal, no lesion, rash, masses or bruising noted in e xtremities. MUSCULOSKELETAL: Left BKA, clean dry and intact with john and sutures, slightly warm but no overt signs of breakdown or infection. Otherwise BUE and BLE normal without defect, crepitus, subluxation, effusion, arthritic changes or TTP. BUE 4+/5, good ROM, with normal tone. BLE 4+/5 good ROM, with normal tone NEURO: Sensation intact in all extremities with neuropathy present below mid hernandes and in hands. Coordination intact in BUE. No tremor noted in 4 extremities. POSTURE and GAIT: Sitting posture good. Able to transfer with supervision PSYCH: Alert, oriented x3, affect appears normal. Insight appears intact. - Constitutional Vitals: Vital Signs - 12hr 05/17/22 05/17/22 05/17/22 06:00 08:05 10:15 Temperature 97.9 F Pulse Rate 59 L 60 Respiratory 19 16 Rate Blood Pressure 118/47 O2 Sat by Pulse 97 Oximetry 05/17/22 10:17 Temperature Pulse Rate 62 Respiratory Rate Blood Pressure O2 Sat by Pulse Oximetry - Allied health notes Allied health notes reviewed: nursing, PT, OT - Labs CBC & Chem 7: 05/17/22 07:56 05/17/22 07:00 Labs: Laboratory Results - last 72 hr 05/14/22 05/15/22 05/15/22 20:21 07:30 12:15 WBC RBC Hgb Hct MCV MCH MCHC RDW Plt Count Sodium Potassium Chloride Carbon Dioxide Anion Gap BUN Creatinine Estimated GFR BUN/Creatinine Ratio Glucose POC Glucose 318 H 213 H 263 H Calcium 05/15/22 05/15/22 05/16/22 16:52 20:18 07:29 WBC RBC Hgb Hct MCV MCH MCHC RDW Plt Count Sodium Potassium Chloride Carbon Dioxide Anion Gap BUN Creatinine Estimated GFR BUN/Creatinine Ratio Glucose POC Glucose 299 H 299 H 228 H Calcium 05/16/22 05/16/22 05/16/22 11:04 15:40 22:01 WBC RBC Hgb Hct MCV MCH MCHC RDW Plt Count Sodium Potassium Chloride Carbon Dioxide Anion Gap BUN Creatinine Estimated GFR BUN/Creatinine Ratio Glucose POC Glucose 255 H 270 H 232 H Calcium 05/17/22 05/17/22 05/17/22 07:00 07:56 08:02 WBC 7.1 RBC 3.94 Hgb 11.2 Hct 34.7 MCV 88 MCH 29 MCHC 32 RDW 14.8 Plt Count 259 Sodium 140 Potassium 4.8 Chloride 102.2 Carbon Dioxide 27 Anion Gap 16 BUN 20 H Creatinine 0.6 Estimated GFR > 60 BUN/Creatinine Ratio 33 Glucose 187 H POC Glucose 186 H Calcium 8.6 05/17/22 12:27 WBC RBC Hgb Hct MCV MCH MCHC RDW Plt Count Sodium Potassium Chloride Carbon Dioxide Anion Gap BUN Creatinine Estimated GFR BUN/Creatinine Ratio Glucose POC Glucose 220 H Calcium Assessment and Plan Left BKA: Continue to monitor wound for any signs of infection or dehiscence. Maintain dressing changes. Patient will need to follow-up with surgeon after discharge. Hypertension: Discontinue lisinopril 10 mg, hold orders placed for Lasix and monitor blood pressure, adjust as needed for normotension. Goal less than 140/90. Diastolic has been low however was similar at outside hospital but outside hospital had more variability. 1 L of gentle fluids and monitor. Lasix discontinued . Recheck of blood pressure is giving a different reading then that obtained by others, highly variable. Atrial fibrillation: Continue rate control and Eliquis. Monitor for any signs of worsening cardiac function. Patient is on telemetry Gastroparesis: Changed Reglan to as needed due to possible side effects with diarrhea, monitor Diabetes, poorly controlled: Insulin has been ordered, continue carb controlled diet. Monitor and adjust as needed for euglycemia. Increased Lantus, with impr ovement Diarrhea: Imodium as needed. Check stool for C. difficile, not done apparently, no results available. At any rate diarrhea seems to have subsided. KUB was reviewed and did not show any significant abnormality Gluteal skin breakdown: Monitor frequently after bowel movements and provide P TOVA care, this was present on admission and appears to be chronic in nature ADL dysfunction: OT will work on improving ability to perform ADLs (including assistive devices) to increase independence and decrease caregiver burden and improve functional transfers and mobility training. Difficulty walking: PT will work on gait training and proper use of assistive devices and advance as appropriate to use of stairs and outside ambulation on uneven surfaces. Unsteadiness on feet: PT will work on improving static and dynamic sitting and standing balance as well as proper use of assistive devices to decrease risk of falls. Abnormality of gait: PT will work to improve safety and efficiency of gait through neuromotor training and gait training along with instruction on proper use of assistive devices. Muscle weakness: PT & OT will work on strengthening exercises to improve functional strength including mixture of closed and open kinetic chain exercises. Debility: PT & OT will work on improving overall functional status to improve participation with ADLs, mobility and social involvement. Fatigue: PT & OT will work on improving endurance through aerobic exercises and therapeutic activity while monitoring patients tolerance for activity and vital signs as needed. DVT ppx: On Eliquis Pain: Continue physical modalities in therapy and pain medications as needed to achieve functional pain control. Sleep: Monitor and address as needed. Bowel: Monitor and address as needed. Appetite: Monitor and address as needed. Discharge planning: Pending therapy progress and care plan meeting. Will continue discussion with therapy team, SW, patient and family. Look to discharge on Tuesday with family. Patient is stating that she needs a ride home. Restrictions/ Precautions: Falls WB status: FWB Functional Hx: ADLs: Independent Cognition: Independent Mobility: walker Barriers to Discharge: Decreased mobility and ability to perform self care, balance deficits, weakness Estimated Length of Stay: 57 days Discharge Destination: Home with family
[2022-05-18] MEDS: GABAPENTIN 300 MG CAP PO SCH ×3 (05:11→21:46)
[2022-05-18] MEDS: oxyCODONE 5 MG TAB PO PRN ×4 (05:13→20:09)
[2022-05-18] MEDS: INSULIN LISPRO 100 UNIT/ML SUB-Q SCH ×4 (08:00→21:45)
[2022-05-18] MEDS ORDERED: METOPROLOL TARTRATE 50 MG TAB PO SCH (08:22)
[2022-05-18] MEDS: INSULIN GLARGINE 100 UNITS/ML SUB-Q SCH ×2 (08:25→21:45)
--- NOTE | 2022-05-18 14:05 | Progress Note ---
Subjective Date of service: 05/18/22 Principal diagnosis: Left BKA Interval history: 57-year-old female who presented to outside hospital with foul-smelling left foot wound which was draining. Admitted for sepsis and IV antibiotics previously in July 2019. Upon examination the patient met criteria this admission for sepsis and was also found to be in atrial fibrillation with RVR. Imaging showed gas in the soft tissue with ulceration to the level of the bone but did not show venkatesh osseous destruction. Started on IV antibiotics, was planned to go to the OR on 04/28 for BKA however patient opted for debridement instead, vascular and podiatry both recommend BKA. On 04/30 patient ended up going for BKA, antibiotics were later stopped. Rate control was achieved using oral Cardizem and Lopressor and patient was started on Eliquis. Of note patient currently has diarrhea which just started overnight. Seems to be improving per the patient, will monitor and if continues and seems to be consistent with C. difficile will check stool sample. After the patient was medically stabilized they were transferred for further rehabilitation. All available medical records have been reviewed. Plan of care was discussed with patient. Interval History: Patient is participating in therapy and making reasonable progress. Taking rest breaks as needed. +BM. Denies pain, palpitations, dyspnea, cough, N/V, or joint pain. Left BKA: Stable, continue plan of care and monitor for any worsening, skin breakdown, infection, dehiscence Hypertension: Diastolic has been running slightly lower than what we would prefer. However patient is asymptomatic and diastolic is in line with values seen in outside hospital but it was more variable there. Medications have been adjusted, blood pressure remains slightly low on the diastolic side however the patient does remain asymptomatic. Atrial fibrillation: Reviewed on telemetry, heart rate controlled without evidence of A. fib currently. Cont metoprolol Diabetes: Blood glucose improved with increase of Lantus but still variable, continue sliding scale and monitor Diarrhea: Seems improved after stopping scheduled Reglan. Discussed with patient. Having slower stools now and thinks that she may be constipated, reminded her that she does have bowel meds available as needed. Continue to monitor, patient does have Imodium available as needed ADL and mobility deficits: Continue therapy to improve patient's ability to mobilize and perform ADLs as independently as possible, continues to make improvements, look to discharge on Tuesday. All records, vitals, labs and medications were reviewed. No other issues per patient, nursing or therapy. Patient discussed during team conference, making fairly good progress and should be set to discharge tomorrow. Patient's family is already obtained several of the items of DME that we have recommended. I did also write a list earlier in her stay for the DME but it looks like they are purchasing it on their own. Patient states that they have hired a caregiver to come in and assist with her care in addition to the home health that will be provided for short period time since she is uninsured. We will look to discharge patient tomorrow Objective - Exam Narrative Exam: MUSCULOSKELETAL SPECIALTY EXAM CONSTITUTIONAL: Well developed, well nourished, appropriately groomed, obese RESPIRATORY: Clear to auscultation bilaterally, no increased work of breathing, no crackles or signs of fluid overload CARDIOVASCULAR: Regular Rate/ Rhythm, no tenderness in BUE or BLE. All extremities warm. Right lower extremity swelling and edema GI: + bowel sounds, soft, NTTP, nondistended. INTEGUMENTARY: Bruising and stasis changes on RLE, wound on LLE, gluteal skin breakdown, chronic, otherwise normal, no lesion, rash, masses or bruising noted in extremities. MUSCULOSKELETAL: Left BKA, clean dry and intact with john and sutures. Otherwise BUE and BLE normal without defect, crepitus, subluxation, effusion, arthritic changes or TTP. BUE 4+/5, good ROM, with normal tone. BLE 4+/5 good ROM, with normal tone NEURO: Sensation intact in all extremities with neuropathy present below mid hernandes and in hands. Coordination intact in BUE. No tremor noted in 4 extremities. POSTURE and GAIT: Sitting posture good. Able to transfer with supervision PSYCH: Alert, oriented x3, affect appears normal. Insight appears intact. - Constitutional Vitals: Vital Signs - 12hr 05/18/22 05/18/22 05/18/22 05:09 08:04 09:35 Temperature 97.7 F 97.7 F Pulse Rate 53 L 38 L Respiratory 18 18 18 Rate Blood Pressure 101/41 102/46 O2 Sat by Pulse 94 95 Oximetry - Allied health notes Allied health notes reviewed: nursing, PT, OT - Labs CBC & Chem 7: 05/17/22 07:56 05/17/22 07:00 Labs: Laboratory Results - last 72 hr 05/15/22 05/15/22 05/16/22 16:52 20:18 07:29 WBC RBC Hgb Hct MCV MCH MCHC RDW Plt Count Sodium Potassium Chloride Carbon Dioxide Anion Gap BUN Creatinine Estimated GFR BUN/Creatinine Ratio Glucose POC Glucose 299 H 299 H 228 H Calcium 05/16/22 05/16/22 05/16/22 11:04 15:40 22:01 WBC RBC Hgb Hct MCV MCH MCHC RDW Plt Count Sodium Potassium Chloride Carbon Dioxide Anion Gap BUN Creatinine Estimated GFR BUN/Creatinine Ratio Glucose POC Glucose 255 H 270 H 232 H Calcium 05/17/22 05/17/22 05/17/22 07:00 07:56 08:02 WBC 7.1 RBC 3.94 Hgb 11.2 Hct 34.7 MCV 88 MCH 29 MCHC 32 RDW 14.8 Plt Count 259 Sodium 140 Potassium 4.8 Chloride 102.2 Carbon Dioxide 27 Anion Gap 16 BUN 20 H Creatinine 0.6 Estimated GFR > 60 BUN/Creatinine Ratio 33 Glucose 187 H POC Glucose 186 H Calcium 8.6 05/17/22 05/17/22 05/17/22 12:27 16:19 21:39 WBC RBC Hgb Hct MCV MCH MCHC RDW Plt Count Sodium Potassium Chloride Carbon Dioxide Anion Gap BUN Creatinine Estimated GFR BUN/Creatinine Ratio Glucose POC Glucose 220 H 121 H 275 H Calcium 05/18/22 05/18/22 08:02 12:25 WBC RBC Hgb Hct MCV MCH MCHC RDW Plt Count Sodium Potassium Chloride Carbon Dioxide Anion Gap BUN Creatinine Estimated GFR BUN/Creatinine Ratio Glucose POC Glucose 160 H 222 H Calcium Assessment and Plan Left BKA: Continue to monitor wound for any signs of infection or dehiscence. Maintain dressing changes. Patient will need to follow-up with surgeon after discharge. Hypertension: Discontinue lisinopril 10 mg, hold orders placed for Lasix and monitor blood pressure, adjust as needed for normotension. Goal less than 140/90. Diastolic has been low however was similar at outside hospital but outside hospital had more variability. 1 L of gentle fluids and monitor. Lasix discontinued . Atrial fibrillation: Continue rate control and Eliquis. Monitor for any signs of worsening cardiac function. Patient is on telemetry Gastroparesis: Changed Reglan to as needed due to possible side effects with diarrhea, monitor Diabetes, poorly controlled: Insulin has been ordered, continue carb controlled diet. Monitor and adjust as needed for euglycemia. Increased Lantus, with improvement Diarrhea: Imodium as needed. Check stool for C. difficile, not done apparently, no results available. At any rate diarrhea seems to have subsided. KUB was reviewed and did not show any significant abnormality Gluteal skin breakdown: Monitor frequently after bowel movements and provide CHRISTAL care, this was present on admission and appears to be chronic in nature ADL dysfunction: OT will work on improving ability to perform ADLs (including assistive devices) to increase independence and decrease caregiver burden and improve functional transfers and mobility training. Difficulty walking: PT will work on gait training and proper use of assistive devices and advance as appropriate to use of stairs and outside ambulation on uneven surfaces. Unsteadiness on feet: PT will work on improving static and dynamic sitting and standing balance as well as proper use of assistive devices to decrease risk of falls. Abnormality of gait: PT will work to improve safety and efficiency of gait through neuromotor training and gait training along with instruction on proper use of assistive devices. Muscle weakness: PT & OT will work on strengthening exercises to improve functional strength including mixture of closed and open kinetic chain exercises. Debility: PT & OT will work on improving overall functional status to improve participation with ADLs, mobility and social involvement. Fatigue: PT & OT will work on improving endurance through aerobic exercises and therapeutic activity while monitoring patients tolerance for activity and vital signs as needed. DVT ppx: On Eliquis Pain: Continue physical modalities in therapy and pain medications as needed to achieve functional pain control. Sleep: Monitor and address as needed. Bowel: Monitor and address as needed. Appetite: Monitor and address as needed. Discharge planning: Pending therapy progress and care plan meeting. Will continue discussion with therapy team, SW, patient and family. Look to discharge on Tuesday with family. Patient is stating that she needs a ride home. Restrictions/ Precautions: Falls WB status: FWB Functional Hx: ADLs: Independent Cognition: Independent Mobility: walker Barriers to Discharge: Decreased mobility and ability to perform self care, balance deficits, weakness Estimated Length of Stay: 57 days Discharge Destination: Home with family
[2022-05-18] MEDS: METOPROLOL TARTRATE 25 MG TAB PO SCH ×2 (15:03→21:52)
[2022-05-18] MEDS: CITALOPRAM 20 MG TAB PO SCH (15:12)
[2022-05-18] MEDS: ASPIRIN EC 81 MG TAB PO SCH (15:12)
[2022-05-18] MEDS: APIXABAN 5 MG TAB PO SCH ×2 (15:12→21:46)
[2022-05-19] MEDS: GABAPENTIN 300 MG CAP PO SCH ×2 (05:15→14:14)
--- NOTE | 2022-05-19 07:14 | Discharge Summary ---
Providers - Providers Date of Admission: 05/10/22 17:06 Date of discharge: 05/19/22 Attending physician: DIEGO MCKENNA III, MD 05/10/22 09:05 Consult to Wound/ET Nurse [CONS] Routine Reason For Exam: wound eval 05/10/22 09:06 Occupational Therapy Evaluate and Treat [CONS] Routine Comment: Reason For Exam: ADL dysfunction Physical Therapy Evaluation and Treat [CONS] Routine Comment: Reason For Exam: Mobility Dysfunction 05/10/22 09:27 Consult to Case Management [CONS] Routine Services Needed at Discharge: Home Health Services Notified:: medical case manager Consult to Dietitian/Nutrition [CONS] Routine Physician Instructions: Reason For Exam: Reason for Consult: Diet education 05/11/22 06:07 Consult to Wound/ET Nurse [CONS] Routine Reason For Exam: wound eval Primary care physician: SONOGRAPHY TECHNICIAN Hospitalization Reason for admission: Left BKA Condition: Good Hospital course: 57-year-old female who presented to outside hospital with foul-smelling left foot wound which was draining. Admitted for sepsis and IV antibiotics previously in July 2019. Upon examination the patient met criteria this admission for sepsis and was also found to be in atrial fibrillation with RVR. Imaging showed gas in the soft tissue with ulceration to the level of the bone but did not show venkatesh osseous destruction. Started on IV antibiotics, was planned to go to the OR on 04/28 for BKA however patient opted for debridement instead, vascular and podiatry both recommend BKA. On 04/30 patient ended up going for BKA, antibiotics were later stopped. Rate control was achieved using oral Cardizem and Lopressor and patient was started on Eliquis. Of note patient currently has diarrhea which just started overnight. Seems to be improving per the patient, will monitor and if continues and seems to be consistent with C. difficile will check stool sample. After the patient was medically stabilized they were transferred for further rehabilitation. All available medical records have been reviewed. Plan of care was discussed with patient. Left BKA: Continue to monitor wound for any signs of infection or dehiscence. Maintain dressing changes. Patient will need to follow-up with surgeon after discharge, this is already scheduled. On dressing change yesterday, scant drainage was noted at 3 different areas along the incision. Would continue Mepilex followed by Kerlix and then Bert wrap being changed out every other day and as needed. Would look to change to all dry dressing over the next week or so. Staple and suture removal per surgeon recommendations after follow-up. Hypertension: Discontinue lisinopril 10 mg, hold orders placed for Lasix and monitor blood pressure, adjust as needed for normotension. Goal less than 140/90. Diastolic has been low however was similar at outside hospital but outside hospital had more variability. Tolerated a liter of gentle fluids without much change in blood pressure however BUN/creatinine improved. Lasix discontinued but did not significantly improve blood pressure. Feel that blood pressure is not a true value for the patient. Have been able to obtain regular blood pressure values at times when performing rechecks personally. At discharge, will send the patient home with Lasix 20 mg every other day and metoprolol 25 mg twice a day. Patient will need to follow-up with primary care for further monitoring and adjustment of medications and possibly restarting of lisinopril. Metoprolol primarily in place for rate control. Despite the erratic blood pressure readings, patient has been asymptomatic. Did undergo cardiac work-up at outside hospital prior to admission for rehab. Variability in vital signs likely due to body habitus and inability of machine to capture correct values. Atrial fibrillation: Continue rate control and Eliquis. Monitor for any signs of worsening cardiac function. Patient is on telemetry, which has not shown any signs of atrial fibrillation or significant bradycardia or tachycardia during her stay. Vital signs values have shown significant bradycardia but this was not confirmed by telemetry. Gastroparesis: Changed Reglan to as needed due to possible side effects with diarrhea, monitor Diabetes, poorly controlled: Insulin has been ordered, continue carb controlled diet. Monitor and adjust as needed for euglycemia. Increased Lantus, with improvement. Patient will need to continue to check this at home and follow-up with PCP/endocrinology for further adjustment Diarrhea: Imodium as needed. Check stool for C. difficile, no results available, stools have returned to normal. KUB was reviewed and did not show any significant abnormality Gluteal skin breakdown: Monitor frequently after bowel movements and provide CHRISTAL care, this was present on admission and appears to be chronic in nature. Prescriptions have been given to the patient for DME. We are recommending wheelchair, 3 and 1, and shower chair. Patient states that her [id number] has been purchasing these previously and that they already have the items. Disposition: HOME HEALTH CARE SERVICE Final Discharge Diagnosis (Prints w/discharge instructions): Left BKA, hypertension, atrial fibrillation, diabetes, ADL and mobility deficits Time spent for discharge: >30 mins Core Measure Documentation - Palliative Care Palliative Care/ Comfort Measures: Not Applicable - Core Measures Any of the following diagnoses?: none Exam - Physical Exam Narrative exam: MUSCULOSKELETAL SPECIALTY EXAM CONSTITUTIONAL: Well developed, well nourished, appropriately groomed, obese RESPIRATORY: Clear to auscultation bilaterally, no increased work of breathing, no crackles or signs of fluid overload CARDIOVASCULAR: Regular Rate/ Rhythm, no tenderness in BUE or BLE. All extremities warm. Right lower extremity swelling and edema GI: + bowel sounds, soft, NTTP, nondistended. INTEGUMENTARY: Bruising and stasis changes on RLE, wound on LLE, gluteal skin breakdown, chronic, otherwise normal, no lesion, rash, masses or bruising noted in extremities. MUSCULOSKELETAL: Left BKA, clean dry and intact with john and sutures, scant drainage serosanguineous in nature. Otherwise BUE and BLE normal without defect, crepitus, subluxation, effusion, arthritic changes or TTP. BUE 4+/5, good ROM, with normal tone. BLE 4+/5 good ROM, with normal tone NEURO: Sensation intact in all extremities with neuropathy present below mid hernandes and in hands. Coordination intact in BUE. No tremor noted in 4 extremities. POSTURE and GAIT: Sitting posture good. Able to transfer with supervision PSYCH: Alert, oriented x3, affect appears normal. Insight appears intact. - Constitutional Vitals: Temp Pulse Resp BP Pulse Ox 98.6 F 69 19 122/40 95 05/18/22 23:50 05/19/22 06:00 05/18/22 23:50 05/18/22 23:50 05/19/22 01:00 Plan Activity: advance as tolerated, up only with assistance, fall precautions Weight Bearing Status: Non-Weight Bearing (Left lower extremity) Diet: diabetic (Heart healthy diabetic diet) Wound: other (Dressing should be changed and cleaned every other day. Currently utilizing Mepilex followed by Kerlix and then an Bert wrap. Will likely need to change to dry dressing over the next several days to next week.) Special Instructions: record daily BP diary, record blood sugar diary, physical therapy, occupational therapy, home health RN Durable Medical Equipment Needed Upon Discharge: Wheelchair, Bedside Commode, other (Shower chair) Care Plan Goals: Patient will need to follow-up with PCP discharge for further monitoring of chronic medical conditions. Patient states that she currently does not have a PCP but did have 1 set up through [facility]. Would encourage her to continue to follow through with that appointment. Blood pressure and blood glucose will need to be monitored closely prior to her follow-ups and medications may need to be adjusted. Patient also needs a follow-up with endocrinology. This was an appointment set up by [facility] with Dr. Mariaelena Johnson at [facility] in [place] with a telephone number of . The appointment is scheduled for May 31 at 3 PM Patient also needs to follow-up with her surgeon. I do not have the surgeon's name in the records that were provided but she does have an appointment already set up for him next week and I have encouraged her to continue with this follow- up. Surgeon will direct timing of staple and suture removal as well as further direct any changes in wound care for the incision site and timing for prosthesis preparation. Follow up with: PRIMARY CARE, [Primary Care Provider] - 7 Days Prescriptions: Insulin Glargine [Lantus VIAL] 45 units SUB-Q QHS 30 Days units AtorvaSTATin [Lipitor] 40 mg PO QHS #30 tablet Citalopram [Celexa] 40 mg PO QDAY #60 tablet Apixaban [Eliquis] 5 mg PO Q12HR #60 tablet Gabapentin 300 mg PO Q8HR #90 capsule Aspirin EC [Halfprin EC] 81 mg PO QDAY #30 tablet Lispro Insulin [HumaLOG] See Protocol SUB-Q ACHS 30 Days units Insulin Glargine [Lantus VIAL] 45 units SUB-Q QAMDIAB 30 Days units Metoprolol [Lopressor TAB] 25 mg PO BID #60 tablet oxyCODONE [roxiCODONE] 5 mg PO Q8HR PRN #60 tablet PRN Reason: Pain, Moderate (4-6) Furosemide [Lasix TAB] 20 mg PO Q48HR #15 tablet
[2022-05-19] MEDS: oxyCODONE 5 MG TAB PO PRN ×2 (07:59→14:14)
[2022-05-19] MEDS ORDERED: FUROSEMIDE 20 MG TAB PO SCH (10:00)
[2022-05-19] MEDS: INSULIN GLARGINE 100 UNITS/ML SUB-Q SCH (10:25)
[2022-05-19] MEDS: ASPIRIN EC 81 MG TAB PO SCH (10:25)
[2022-05-19] MEDS: CITALOPRAM 20 MG TAB PO SCH (10:25)
[2022-05-19] MEDS: METOPROLOL TARTRATE 25 MG TAB PO SCH (10:26)
[2022-05-19] MEDS: APIXABAN 5 MG TAB PO SCH (10:26)
[2022-05-19] MEDS: INSULIN LISPRO 100 UNIT/ML SUB-Q SCH ×2 (10:27→11:58)
[2022-05-19 12:16] VITALS: BP 130/44
== END 2022-05-19 16:32 | disposition home or self-care (01) | DRG 639 ==
LOC: 4A 08:33 → UNDOADMIN 08:33 → 4A 17:06
PROVIDERS: ADMIT Physical Medicine & Rehabilitation; ATTEND Physical Medicine & Rehabilitation
DX: E11.621 Type 2 diabetes mellitus with foot ulcer (principal); I10 Essential (primary) hypertension; I48.91 Unspecified atrial fibrillation; K21.9 Gastro-esophageal reflux disease without esophagitis; E78.5 Hyperlipidemia, unspecified; E11.65 Type 2 diabetes mellitus with hyperglycemia; E11.43 Type 2 diabetes mellitus with diabetic autonomic (poly)neuropathy; K31.84 Gastroparesis; R26.81 Unsteadiness on feet; R53.81 Other malaise; R19.7 Diarrhea, unspecified; L97.529 Non-pressure chronic ulcer of other part of left foot with unspecified severity; Z82.49 Family history of ischemic heart disease and other diseases of the circulatory system; Z90.49 Acquired absence of other specified parts of digestive tract; Z90.710 Acquired absence of both cervix and uterus; Z89.512 Acquired absence of left leg below knee; Z79.899 Other long term (current) drug therapy
CPT/HCPCS: 36415; 74018; 80048; 80053; 82962; 85025; 85027; 99406; G0378; Q9967; J1815; J7030